=== PATIENT | male | born 1995 | race Caucasian/White ===

== ENCOUNTER 2022-04-19 22:46 | Emergency (ER) | payer SELFPAY ==
[2022-04-20] MEDS ORDERED: Lidocaine 1% PF 5 ML VIAL ONE (01:11)
== END 2022-04-20 01:43 | disposition home or self-care (01) ==
LOC: ERS 22:46
DX: S60.551A Superficial foreign body of right hand, initial encounter (principal); F17.210 Nicotine dependence, cigarettes, uncomplicated; W45.8XXA Other foreign body or object entering through skin, initial encounter